=== PATIENT | male | born 1965 | race Hispanic/Latino ===

== ENCOUNTER 2017-07-02 13:29 | Inpatient (IN) | payer OTHER ==
[2017-07-02 14:11] LABS: Basophils % (Auto) 0.7 % (0.0-1.8); Eosinophils % (Auto) 0.6 % (0.0-4.3); Hematocrit 43.6 % (35.5-45.6); Mean Corpuscular HGB Conc 34 % (32-34); Mean Corpuscular Hemoglobin 31 pg (28-32); Mean Corpuscular Volume 89 fl (84-94); Platelet Count 228 K/mm3 (140-440); Red Blood Count 4.89 M/mm3 (3.65-5.03); Red Cell Distribution Width 12.9 % (13.2-15.2); White Blood Count 8.1 K/mm3 (4.5-11.0)
--- NOTE | 2017-07-02 14:17 | Cat Scan Report ---
CT HEAD WITHOUT CONTRAST: HISTORY: CVA. Serial contiguous axial images were obtained through the cranium. Intravenous contrast material was not administered. The ventricles are normal in size and appearance. There is no mass effect or midline shift. No areas of abnormally increased or decreased attenuation are seen. No mass lesion is seen. The mastoid air cells and visualized portions of the sinuses are normal. IMPRESSION: Cranial CT scan within normal limits. No evidence for hemorrhage.
[2017-07-02 14:19] LABS: INR 1.03 (0.87-1.13)
[2017-07-02 14:20] LABS: Partial Thromboplastin Time 26.2 Sec. (24.2-36.6)
--- NOTE | 2017-07-02 14:21 | Emergency Department Report ---
HPI - General Chief Complaint: Neuro Symptoms/Deficit Time Seen by Provider: 07/02/17 13:49 - HPI HPI: This is a 51-year-old male presents the emergency department by EMS with complaints of left-sided facial numbness, slurred speech, chest pain. The patient says that since this morning is been having some left-sided chest discomfort with radiation towards the left shoulder blade. He denies any shortness of breath, nausea, vomiting or fever. While at work the patient says that he developed some numbness to the left side of his face and while he did not feel like he was slurring his speech, his boss thought he was slurring his speech. He was brought to a local fire department who suggested coming into the emergency department and he was brought in by EMS. He did not receive anything for symptoms prior to presentation. The slurred speech had resolved by this point. He has a past medical history of hypertension. He denies any tobacco or illicit drug use or abuse. No recent travel or sick contacts at home. ED Past Medical Hx - Past Medical History Previous Medical History?: Yes Hx Hypertension: Yes - Surgical History Past Surgical History?: Yes - Social History Smoking Status: Never Smoker Substance Use Type: None - Medications Home Medications: Home Medications Medication Instructions Recorded Confirmed Last Taken Type Hydrochlorothiazide [HCTZ] 25 mg PO QDAY 07/02/17 07/02/17 07/02/17 History Losartan [Cozaar] 100 mg PO QDAY 07/02/17 07/02/17 07/02/17 History ED Review of Systems ROS: Stated complaint: NUMBING/TINGLING LEFT ARM Other details as noted in HPI Comment: All other systems reviewed and negative Constitutional: denies: chills, fever Eyes: denies: eye pain, eye discharge, vision change ENT: denies: ear pain, throat pain Respiratory: denies: cough, shortness of breath, wheezing Cardiovascular: chest pain. denies: palpitations Gastrointestinal: denies: abdominal pain, nausea, diarrhea Genitourinary: denies: urgency, dysuria Musculoskeletal: back pain. denies: joint swelling, arthralgia Skin: denies: rash, lesions Neurological: headache, numbness. denies: weakness Physical Exam - Physical Exam Vital Signs: Vital Signs 07/02/17 07/02/17 07/02/17 13:31 13:40 13:42 Pulse Rate 94 H 92 H Respiratory 20 19 Rate Blood Pressure 154/101 154/101 169/103 O2 Sat by Pulse 96 Oximetry Physical Exam: GENERAL: The patient is well-developed well-nourished. HEENT: Normocephalic. Atraumatic. Extraocular motions are intact. Patient has moist mucous membranes. Pupils equal reactive to light bilaterally. No nystagmus. NECK: Supple. Trachea is midline. CHEST/LUNGS: Clear to auscultation. There is no respiratory distress noted. Unable to reproduce chest pain to palpation. HEART/CARDIOVASCULAR: Regular. There is no tachycardia. There is no gallop rub or murmur. ABDOMEN: Abdomen is soft, nontender. Patient has normal bowel sounds. There is no abdominal distention. SKIN: There is no rash. There is no edema. There is no diaphoresis. NEURO: The patient is awake, alert, and oriented. The patient is cooperative. Patient has decreased sensation to numbness to the left side of the face only. The patient has normal speech. There is no pronator drift or dysmetria. Otherwise cranial nerves II through XII grossly intact. No facial asymmetry. MUSCULOSKELETAL: There is no tenderness or deformity. There is no limitation range of motion. There is no evidence of acute injury. Muscle strength 5 out of 5 for upper and lower extremities bilaterally. Unable to reproduce left arm pain to palpation. ED Course Vital Signs 07/02/17 07/02/17 07/02/17 13:31 13:40 13:42 Pulse Rate 94 H 92 H Respiratory 20 19 Rate Blood Pressure 154/101 154/101 169/103 O2 Sat by Pulse 96 Oximetry ED Medical Decision Making - Lab Data Result diagrams: 07/02/17 13:56 07/02/17 13:56 - EKG Data -: EKG Interpreted by Me EKG shows normal: sinus rhythm, axis, intervals, QRS complexes, ST-T waves Rate: normal - EKG Data When compared to previous EKG there are: previous EKG unavailable Interpretation: normal EKG - Radiology Data Radiology results: report reviewed, image reviewed interpreted by me: Chest x-ray did not show any acute process. Heart is normal shape and size. No effusions. No pneumothorax. No signs of pneumonia seen. CT of the head does not show any acute process including no hemorrhage, mass, shift, diffuse edema or skull fracture. CT angiography of the chest is technically limited but otherwise did not show definitive evidence of a pulmonary embolism. There is hepatic steatosis. - Medical Decision Making 51-year-old male presents the emergency department with complaint of left-sided chest pain with radiation down the left arm as well as a transient episode of slurred speech with left-sided facial numbness. The slurred speech is completely resolve but the patient still has the left-sided facial numbness. Patient will currently be a NIH stroke scale of one secondary to that numbness but he is outside of the window for TPA as he presented about 4.5 hours after the symptoms began and there is improvement of the symptoms with resolution of the slurred speech and therefore he is also not likely to be a TPA candidate. Regarding his chest pain, he has a chest x-ray does not show any acute process. EKG is normal without ST elevation [place], ischemia or dysrhythmia. Labs show negative troponins 2 this far. He had a slightly elevated an equivocal d- dimer so CT angiography of the chest was done that did not show any pulmonary embolism. His previous CT of the head did not show any bleed, shift, mass or any acute process. He still continues having chest pain and the left-sided facial numbness. For these reasons the patient will be admitted to the hospital for further evaluation and treatment. He has been covered with a full dose aspirin. - Differential Diagnosis CVA, TIA, AZ, PE Critical Care Time: No Critical care attestation.: If time is entered above; I have spent that time in minutes in the direct care of this critically ill patient, excluding procedure time. ED Disposition Clinical Impression: Facial numbness Chest pain Qualifiers: Chest pain type: unspecified Qualified Code(s): R07.9 - Chest pain, unspecified TIA (transient ischemic attack) Qualifiers: Transient cerebral ischemia type: unspecified Qualified Code(s): G45.9 - Transient cerebral ischemic attack, unspecified Disposition: 09 OP ADMIT IP TO THIS HOSP Is pt being admited?: Yes Condition: Stable Instructions: Chest Pain (ED) Referrals: PRIMARY CARE, [Primary Care Provider] - 3-5 Days Time of Disposition: 19:23
[2017-07-02] MEDS ORDERED: BABY ASPIRIN PO ONE (14:22)
[2017-07-02 14:27] LABS: Anion Gap 21 mmol/L; BUN/Creatinine Ratio 13.75; Blood Urea Nitrogen 11 mg/dL (9-20); Calcium 9.4 mg/dL (8.4-10.2); Carbon Dioxide 23 mmol/L (22-30); Chloride 96.7 mmol/L (98-107); Glucose 135 mg/dL (75-100); Potassium 3.4 mmol/L (3.6-5.0); Sodium 137 mmol/L (137-145)
--- NOTE | 2017-07-02 15:11 | Admit Criteria Form ---
Admission Criteria Documentation: NEUROLOGY GRG Clinical Indications for Admission to Inpatient Care (Place ' X' for any and all applicable criteria): Hospital admission is needed for appropriate care of the patient because of 1 or more of the following: [ ]I. Encephalitis [ ]II. Severe CAR SCRUBBER infections indicated by 1 or more of the following(1)(2)(3) : [ ]a) Intracranial abscess [ ]b) Spinal abscess or myelitis [ ]c) Tuberculous or other nonbacterial, nonviral CAR SCRUBBER infection(8) [ ]III. Vasculitis and 1 or more of the following(14)(15): []a) Altered mental status that is severe or persistent or other acute neurologic change []b) Psychosis []c) Seizure [ ]IV. Status epilepticus or repetitive seizures not controlled with emergent treatment [A] (7)(8) [ ]V. Altered mental status that is severe or persistent [ ]. Transient alteration in consciousness with high-risk etiology; examples include (12)(13): [ ]a) Cardiovascular source [ ]b) Cataplexy [ ]VII. Cerebral aneurysm requiring ANY ONE of the following(14): [ ]a) IV antihypertensives or vasoactive agents [ ]b) Sedation and analgesia for suspected leak [ ]c) Need for external ventricular drainage and cerebral perfusion pressure monitoring [ ]d) Emergent evaluation to determine need for surgical clipping or endovascular coiling by interventional radiology. If surgery is required ( Also use Craniotomy, Supratentorial, for Surgery of Bleeding Intracranial Aneurysm (for bleeding aneurysm) or Craniotomy, Supratentorial (for nonbleeding aneurysm) as appropriate. [ ]VIII. New-onset severe neurologic symptom requiring inpatient care indicated by ANY ONE of the following: [ ]a) Aphasia(15) [ ]b) Weakness (grade 3 or less) [ ]c) Paralysis (eg, hemiplegia) [ ]d) Spasticity(16) [ ]e) Dystonia [ ]e) Ataxia(17) [ ]f) Amnesia(18) [ ]g) Involuntary movements(19) [ ]h) Vertigo [ ] Visual loss [ ]i) Other severe neurologic finding (eg, papilledema, mass effect on imaging, myoclonus not treatable at alternative level of care (eg, observation care) [ ]IX. Guillain-[place] syndrome(20) [ ]X. Myasthenia gravis crisis or inpatient monitoring need as indicated by 1 or more of the following(21): [ ]a) Intensive treatment (eg, course of plasmapheresis) with inadequate outpatient situation to monitor patients status [ ]b) Inadequate airway protection [ ]c) Respiratory insufficiency requiring intubation or inpatient. monitoring [ ]d) Progressive dysphagia with failure to thrive [ ]XI. Multiple sclerosis or other acute demyelinating disease requiring inpatient care as indicated by 1 or more of the following (22)(23): [ ]a) Acute severe deterioration requiring inpatient treatment (eg, IV steroids, plasmapheresis, close observation) [ ]b) Acute complication requiring inpatient care (eg, sepsis, severe decubitus, aspiration) [ ]XII.Parkinson disease requiring inpatient care (Also use Optimal Recovery Care Criteria or General Recovery Criteria as appropriate) indicated by 1 or more of the following(25): [ ]a) Infection (eg, aspiration pneumonia) not treatable at alternative level of care [ ]b Dehydration that is severe or persistent [ ]c) Life-threatening agitation or psychotic behavior not treatable on emergency, observation care, or alternative level (eg, residential) basis [ ]d) Severe medication withdrawal effects (eg, freezing, neuroleptic malignant syndrome) not responsive to emergency and observation care treatment ( as appropriate) [ ]e) Other severe manifestation not treatable at alternative level of care [ ]XII. Amyotrophic lateral sclerosis with inpatient care needs as indicated by ANY ONE of the following(26): [ ]a) Acute complications (eg, aspiration pneumonia, sepsis ) requiring inpatient care ( see other optimal Recovery Guideline as appropriate) [ ]b) Dehydration that is severe persistent AND artificial support desired [ ]c) Inadequate airway protection AND artificial support desired [ ]d) Severe ventilatory insufficiency AND artificial support desired [ ]XIII. Myasthenia gravis crisis or inpatient monitoring need as indicated by 1 or more of the following(21): [] a) Inadequate airway protection []b) Respiratory insufficiency requiring intubation or inpatient monitoring []c) Progressive dysphagia with failure to thrive []d) Intensive treatment (e.g., course of plasmapheresis) with inadequate outpatient situation to monitor patients status [ ]XIV. Multiple sclerosis or other acute demyelinating disease requiring inpatient care indicated by 1 or more of the following[C](36)(43)(44)(45)(46): []a) Acute severe deterioration requiring inpatient treatment (eg, IV steroids, plasmapheresis, close observation) []b) Acute complication requiring inpatient care (eg, sepsis, severe decubitus, aspiration) [ ]XV. Intracranial hypertension (e.g., pseudotumor cerebri) requiring inpatient care (e.g., acute visual loss, inadequate oral intake) (47)(48)(49) [ ]XVI. Parkinson disease requiring inpatient care (Also use Optimal Recovery Care Criteria or General Recovery Criteria as appropriate) indicated by 1 or more of the following(25): [] a) Infection (e.g., aspiration pneumonia) not treatable at alternative level of care []b) Volume depletion not responsive to emergency and observation care treatment (as appropriate) []c) Life-threatening agitation or psychotic behavior not treatable on emergency, observation care, or alternative level (e.g., residential) basis []d) Severe medication withdrawal effects (e.g., freezing, neuroleptic malignant syndrome) not responsive to emergency and observation care treatment (as appropriate) []e) Other severe manifestation not treatable at alternative level of care [ ]XVII. Amyotrophic lateral sclerosis with inpatient care needs as indicated by1 or more of the following(42): []a) Acute complications (eg, aspiration pneumonia, sepsis) requiring inpatient care (see other Optimal Recovery Guideline or General Recovery Guideline as appropriate) []b) Dehydration that is severe or persistent AND artificial support desired []c) Inadequate airway protection AND artificial support desired []d) Severe ventilatory insufficiency AND artificial support desired [ ]XVIII. Severe myopathy, neuropathy, or other neuromuscular disease indicated by 1 or more of the following(42)(52)(53)(54): []a ) New-onset severe diffuse weakness (eg, strength 3/5 or less) []b) Severe dysphagia []c) Dyspnea at rest or with minimal exertion (new) []d) Inadequate airway protection []e) Inadequate ventilation indicated by 1 or more of the following : i) Partial pressure of carbon dioxide greater than 44 mm Hg ( 5.9 kPa) (new) ii) Reduced peak expiratory flow rate (new) iii) Vital capacity less than 50% of predicted (less than 15 mL/kg) iv) Peak inspiratory force less negative than -30 cm H2O (- 2942 Pa) [ ]XVII.Complications of congenital or degenerative disease (eg, infection, seizures, dehydration, injury) not responsive to emergency and observation care treatment (as appropriate ) [C](16)(29)(30) [ ]XVIII.Suspected or confirmed nerve or muscle toxic injury, including ANY ONE of the following: [ ]a) Rhabdomyolysis(31) i) Acute renal failure ii) Dehydration that is severe or persistent iii) Altered mental status that is severe or persistent iv) Electrolyte abnormality that remains after emergency or observation level care ( as appropriate) [ ]b) Botulism(32) [ ]c) Other severe toxin-induced sign or symptom [ ]XIX. Neurologic trauma requiring inpatient treatment (medical) indicated by ANY ONE of the following(33)(34): [ ]a) Vital signs or neurologic signs more frequently than every 4 hours [ ]b) Hyperosmolar therapy [ ]c) Respiratory monitoring [ ]d) Intracranial pressure monitoring and treatment [ ]e) Stabilization and immobilization device placement (eg, braces, body jacket) [ ]f) Intubation & mechanical ventilation for airway protection or therapeutic hyperventilation [ ]g) Other treatment or monitoring needed that requires inpatient level of care [ ]XX.Complications of neurologic devices (eg, ventricular shunt, neurostimulator) requiring 1 or more of the following(35)(36): [ ]a) IV antibiotics with monitoring while awaiting culture results [ ]b) Monitoring for hydrocephalus [X ]XXI. Neurology condition symptom, or finding for which emergency and observation care have failed or are not considered appropriate. See General Criteria: Observation Care ISC, General Admission Criteria GRG, or Pediatric General Admission Criteria GRG guideline as appropriate. The original [facility] [employer] content created by [employer] [facility] has been revised. The portions of the content which have been revised are identified through the use of italic text or in bold, and [facility] has neither reviewed nor approved the modified material. All other unmodified content is copyright [facility] Please see references footnoted in the original [facility] edition 2016 Admission Criteria Met: Yes
--- NOTE | 2017-07-02 15:37 | XRay Report ---
AP CHEST: HISTORY: chest pain AP view of the chest demonstrates a normal mediastinal and cardiac contour with clear lungs and normal bony and soft tissue structures. IMPRESSION: Unremarkable AP chest.
[2017-07-02] MEDS ORDERED: NACL ONE ×3 (15:58→16:26)
[2017-07-02] MEDS ORDERED: NACL 0.9% 1000 ML 1,000 ML IV ONE (17:03)
--- NOTE | 2017-07-02 17:04 | Cat Scan Report ---
CT angiography of the chest with 3-D reconstructed images. Findings: The contrast concentration within the pulmonary arteries is suboptimal despite 2 separate injections. There is no definite evidence of pulmonary embolus. The lungs are clear. There is no pleural fluid. The mediastinal and hilar regions are unremarkable. Images which include the upper abdomen reveal hepatic steatosis. Impression: 1. Technically limited study demonstrating no definite evidence of pulmonary emboli. 2. Hepatic steatosis. The
--- NOTE | 2017-07-02 18:57 | History and Physical Report ---
History of Present Illness Chief complaint: my chest hurts, and i feel weak History of present illness: 51 YO Male with HTN, Obesity presents to ED for evaluation. Pt states taht he has experienced pain in his chest, left-sided facial numbness, slurred speech over the past day with worsening symptoms over the past 4 hours. The patient states that his chest pain in 4-6/10, substernal, with radiation to the left shoulder, no exacerbating or alleviating factors, crushing in nature. Pt also states that his speech was slurred this morning, and his left arm and face felt numb. Pt denies any shortness of breath, nausea, vomiting or fever, leg swelling , calf pain, hemoptysis, trauma, or productive cough. Past History Past Medical History: hypertension Past Surgical History: No surgical history, Other (reviewed) Social history: , lives with family. denies: smoking, alcohol abuse, prescription drug abuse Family history: hypertension Medications and Allergies Allergies Allergy/AdvReac Type Severity Reaction Status Date / Time No Known Allergies Allergy Unverified 07/02/17 13:37 Home Medications Medication Instructions Recorded Confirmed Last Taken Type Hydrochlorothiazide [HCTZ] 25 mg PO QDAY 07/02/17 07/02/17 07/02/17 History Losartan [Cozaar] 100 mg PO QDAY 07/02/17 07/02/17 07/02/17 History Review of Systems All systems: negative Constitutional: no weight loss Ears, nose, mouth and throat: no ear pain Cardiovascular: chest pain Respiratory: no cough Gastrointestinal: no abdominal pain Genitourinary Male: no dysuria Rectal: no pain Musculoskeletal: no neck stiffness Integumentary: no rash Neurological: weakness Psychiatric: no anxiety Endocrine: no cold intolerance Hematologic/Lymphatic: no easy bruising Allergic/Immunologic: no urticaria Exam - Constitutional Vitals: Temp Pulse Resp BP Pulse Ox 92 H 18 169/103 98 07/02/17 13:42 07/02/17 14:12 07/02/17 13:42 07/02/17 14:12 General appearance: Present: mild distress - EENT Eyes: Present: PERRL ENT: hearing intact, clear oral mucosa - Neck Neck: Present: supple, normal ROM - Respiratory Respiratory effort: normal Respiratory: bilateral: CTA - Cardiovascular Heart Sounds: Present: S1 & S2. Absent: rub, click - Extremities Extremities: pulses symmetrical, No edema Peripheral Pulses: within normal limits - Abdominal General gastrointestinal: Present: soft, non-tender, non-distended, normal bowel sounds Male genitourinary: Present: normal - Integumentary Integumentary: Present: clear, warm, dry - Musculoskeletal Musculoskeletal: gait normal, strength equal bilaterally - Psychiatric Psychiatric: appropriate mood/affect, intact judgment & insight - Neurologic Neurologic: CNII-XII intact, moves all extremities Results - Labs CBC & Chem 7: 07/02/17 13:56 07/02/17 13:56 Labs: Abnormal lab results 07/02/17 07/02/17 07/02/17 Range/Units 13:56 13:56 14:46 RDW 12.9 L (13.2-15.2) % Simpson % (Auto) 8.8 H (0.0-7.3) % D-Dimer 300.41 H (0-234) ng/mlDDU Potassium 3.4 L (3.6-5.0) mmol/L Chloride 96.7 L (98-107) mmol/L Glucose 135 H (75-100) mg/dL Assessment and Plan - Patient Problems (1) ACS (acute coronary syndrome) Current Visit: Yes Status: Acute Plan to address problem: Admit to telemetry, serial cardiac enzymes, ekg, telemetry, echo, supportive care. (2) CVA (cerebral vascular accident) Current Visit: Yes Status: Acute Qualifiers: CVA mechanism: C Precerebral and cerebral artery: middle cerebral artery Laterality of affected vessel: right Plan to address problem: Stroke protocol: MRI/MRA, CT head, echo, carotid doppler, anti platet therapy, PT/OT/Speech therapy, lipid panel (3) Accelerated hypertension Current Visit: Yes Status: Acute Plan to address problem: monitor bp q shift, Permissive htn overnight. (4) Obesity Current Visit: Yes Status: Acute Qualifiers: Obesity type: O Obesity classification: O Serious obesity comorbidity presence: S Body mass index: BMI 32.0-32.9 Plan to address problem: Increased physical activity, balanced low cholesterol diet, (5) DVT prophylaxis Current Visit: Yes Status: Acute
[2017-07-02] MEDS ORDERED: SODIUM CHLORIDE FLUSH SYRINGE 10 ML IV PRN ×2 (19:00)
[2017-07-02] MEDS ORDERED: TYLENOL PO PRN (19:00)
[2017-07-02] MEDS ORDERED: REGLAN PO PRN (19:00)
[2017-07-02] MEDS ORDERED: PHENERGAN PR PRN (19:00)
[2017-07-02] MEDS ORDERED: NACL 0.45% 1000 ML 1,000 ML IV SCH (19:00)
[2017-07-02] MEDS ORDERED: ZOFRAN IV PRN (19:00)
[2017-07-02] MEDS ORDERED: ATIVAN ONE (19:23)
[2017-07-02] MEDS ORDERED: ATIVAN IV ONE (20:01)
[2017-07-02] MEDS: PEPCID PO SCH (21:51)
[2017-07-02] MEDS ORDERED: ZOCOR PO SCH (22:00)
--- NOTE | 2017-07-03 00:36 | Magnetic Resonance Report ---
FINAL REPORT PROCEDURE: MR BRAIN WO CON TECHNIQUE: Magnetic resonance imaging of the brain was performed without contrast material. HISTORY: stroke COMPARISON: 07/02/2017 FINDINGS: Skull base and calvarium: Normal. Paranasal sinuses: The visualized paranasal sinuses are clear. Cerebellum: No evidence of hemorrhage, ischemia or mass. Brainstem: No evidence of hemorrhage, ischemia or mass. Cerebrum: No evidence of hemorrhage, ischemia or mass. Ventricles: Normal in size and morphology for the patient's age. Pituitary gland and sella: Normal. Globes and orbits: Normal. Vasculature: Normal arterial and venous flow voids. Other: None. IMPRESSION: There is no evidence of an acute intracranial process
--- NOTE | 2017-07-03 00:46 | Magnetic Resonance Report ---
FINAL REPORT PROCEDURE: MR MRA/MRV HEAD WO CON TECHNIQUE: Axial 3-D [id number] MR angiography of the [place] and brain was performed. The source images were reconstructed in various views using maximum intensity projection. HISTORY: stroke COMPARISON: CT brain 07/02/2017 FINDINGS: Findings are discussed about identified portions of the following vessels. The patient displaced slight motion due to claustrophobia Vertebral arteries: Normal. Basilar artery: Normal. Internal carotid arteries: Normal. Anterior cerebral arteries: Normal. Middle cerebral arteries: Normal. Posterior cerebral arteries: Normal. Branch occlusions: None. Vascular malformations: None. IMPRESSION: Normal Examination
[2017-07-03] MEDS ORDERED: ECOTRIN PO SCH (10:00)
[2017-07-03] MEDS: PEPCID PO SCH (11:18)
[2017-07-03 18:24] VITALS: BP 130/70
--- NOTE | 2017-07-03 19:06 | Progress Note ---
Assessment and Plan Assessment and plan: Acute CVA; Not a candidate for TPA, neuro workup is in progress Symptoms significantly improved, continue aspirin and statin --History of coronary artery disease, continue current cardiac medications --Accelerated hypertension; moderate control Continue current antihypertensives when necessary medications --Dyslipidemia; continue lipid lowering medications --Obesity; counseling done patient advised diet modification and exercise as tolerated and weight retention when medically stable --DVT prophylaxis with Lovenox Physical therapy occupational therapy ambulate as tolerated Follow closely monitor the patient and adjust management as needed If workup is negative and if patient is stable possible discharge home tomorrow Plan of care discussed with the patient and his family member at the bedside History Interval history: Patient feels better, CVA workup is in progress Vital signs stable, no new complaints Hospitalist Physical - Constitutional Vitals: Temp Pulse Resp BP Pulse Ox 98.6 F 72 18 130/70 98 07/03/17 18:07 07/03/17 18:07 07/03/17 18:07 07/03/17 18:07 07/03/17 18:07 General appearance: Present: no acute distress, well-nourished, obese - EENT Eyes: Present: PERRL, EOM intact - Neck Neck: Present: supple, normal ROM - Respiratory Respiratory effort: normal Respiratory: negative: rales, rhonchi, wheezing - Cardiovascular Rhythm: regular Heart Sounds: Present: S1 & S2 - Extremities Extremities: no ischemia, No edema - Abdominal General gastrointestinal: soft, non-tender, non-distended, normal bowel sounds - Integumentary Integumentary: Present: clear, warm - Psychiatric Psychiatric: appropriate mood/affect, cooperative - Neurologic Neurologic: CNII-XII intact, moves all extremities Results - Labs CBC & Chem 7: 07/02/17 13:56 07/02/17 13:56 Labs: Laboratory Last Values WBC 8.1 K/mm3 (4.5-11.0) 07/02/17 13:56 RBC 4.89 M/mm3 (3.65-5.03) 07/02/17 13:56 Hgb 15.0 gm/dl (11.8-15.2) 07/02/17 13:56 Hct 43.6 % (35.5-45.6) 07/02/17 13:56 MCV 89 fl (84-94) 07/02/17 13:56 MCH 31 pg (28-32) 07/02/17 13:56 MCHC 34 % (32-34) 07/02/17 13:56 RDW 12.9 % (13.2-15.2) L 07/02/17 13:56 Plt Count 228 K/mm3 (140-440) 07/02/17 13:56 Lymph % (Auto) 22.5 % (13.4-35.0) 07/02/17 13:56 [place] % (Auto) 8.8 % (0.0-7.3) H 07/02/17 13:56 Eos % (Auto) 0.6 % (0.0-4.3) 07/02/17 13:56 Baso % (Auto) 0.7 % (0.0-1.8) 07/02/17 13:56 Lymph # 1.8 K/mm3 (1.2-5.4) 07/02/17 13:56 [place] # 0.7 K/mm3 (0.0-0.8) 07/02/17 13:56 Eos # 0.0 K/mm3 (0.0-0.4) 07/02/17 13:56 Baso # 0.1 K/mm3 (0.0-0.1) 07/02/17 13:56 Seg Neutrophils % 67.4 % (40.0-70.0) 07/02/17 13:56 Seg Neutrophils # 5.5 K/mm3 (1.8-7.7) 07/02/17 13:56 PT 13.4 Sec. (12.2-14.9) 07/02/17 13:56 INR 1.03 (0.87-1.13) 07/02/17 13:56 APTT 26.2 Sec. (24.2-36.6) 07/02/17 13:56 Thrombin Time 16.2 Sec. (15.1-19.6) 07/02/17 13:56 D-Dimer 300.41 ng/mlDDU (0-234) H 07/02/17 14:46 Sodium 137 mmol/L (137-145) 07/02/17 13:56 Potassium 3.4 mmol/L (3.6-5.0) L 07/02/17 13:56 Chloride 96.7 mmol/L (98-107) L 07/02/17 13:56 Carbon Dioxide 23 mmol/L (22-30) 07/02/17 13:56 Anion Gap 21 mmol/L 07/02/17 13:56 BUN 11 mg/dL (9-20) 07/02/17 13:56 Creatinine 0.8 mg/dL (0.8-1.5) 07/02/17 13:56 Estimated GFR > 60 ml/min 07/02/17 13:56 BUN/Creatinine Ratio 13.75 % 07/02/17 13:56 Glucose 135 mg/dL (75-100) H 07/02/17 13:56 Calcium 9.4 mg/dL (8.4-10.2) 07/02/17 13:56 Troponin T < 0.010 ng/mL (0.00-0.029) 07/03/17 00:37 Triglycerides 375 mg/dL (2-149) H 07/02/17 13:56 Cholesterol 145 mg/dL (50-199) 07/02/17 13:56 LDL Cholesterol Direct 41 mg/dL (50-130) L 07/02/17 13:56 HDL Cholesterol 29 mg/dL (40-59) L 07/02/17 13:56 Cholesterol/HDL Ratio 5.00 % 07/02/17 13:56
--- NOTE | 2017-07-09 10:11 | Vascular Lab Report ---
CAROTID DUPLEX STUDY: RIGHT PSVEDV CCA PROX:8419 CCA DIST:9735 ICA PROX:5017 ICA MID:8032 ICA DIST:7235 ECA: 6215 VERT: 43 19 LEFT PSVEDV CCA PROX:92718 CCA DIST:8231 ICA PROX:7121 ICA MID:4723 ICA DIST:6834 ECA: 8515 VERT: 43 17 REASON FOR EXAM: Stroke. COMMENTS ON THE RIGHT: Doppler frequency analysis is consistent with 16 to 49 percent diameter reduction of the internal carotid artery. Minimal amount of plaque is seen. The common carotid artery is patent. The external carotid artery is patent. The vertebral artery has antegrade flow. COMMENTS ON THE LEFT: Doppler frequency analysis is consistent with 16 to 49 percent diameter reduction of the internal carotid artery. Minimal amount of plaque is seen. The common carotid artery is patent. The external carotid artery is patent. The vertebral artery has antegrade flow. IMPRESSION: Less than 50% diameter reduction in the internal carotid arteries bilaterally. Consider repeat carotid artery duplex in 12 months.
== END 2017-07-03 18:28 | disposition left against medical advice (07) | DRG 65 ==
LOC: ED 13:29 → 4A 19:00
PROVIDERS: ADMIT Internal Medicine; ATTEND Internal Medicine
DX: I63.9 Cerebral infarction, unspecified (principal); I24.9 Acute ischemic heart disease, unspecified; I10 Essential (primary) hypertension; E66.9 Obesity, unspecified; I25.10 Atherosclerotic heart disease of native coronary artery without angina pectoris; E78.5 Hyperlipidemia, unspecified; Z53.21 Procedure and treatment not carried out due to patient leaving prior to being seen by health care provider; R20.0 Anesthesia of skin; R47.81 Slurred speech; Z68.32 Body mass index [BMI] 32.0-32.9, adult; Z82.49 Family history of ischemic heart disease and other diseases of the circulatory system
CPT/HCPCS: 36415; 70450; 70544; 70551; 71010; 71275; 80048; 80061; 84484; 85025; 85379; 85610; 85670; 85730; 93005; 93010; 93306; 93880; 96361; 96374; J2060; J7030; Q9967